=== PATIENT | male | born 1960 | race Caucasian/White ===

== ENCOUNTER 2022-12-28 10:01 | Outpatient (OUT) | payer OTHER, SELFPAY ==
--- NOTE | 2022-12-28 | XR_ITS ---
[place] [id number] Patient Name: TORO PORTER MRN: [id number] date: 1960 Sex: M Assigned Patient Location: [facility] Current Patient Location: [facility] Accession/Order Number: [id number] Exam Date: 12/28/2022 10:20 Report Date: 12/28/2022 16:56 At the request of: GOLDY SANCHEZ Procedure: XR ankle MICHELLE min 3V EXAMINATION: XR ankle MICHELLE min 3V HISTORY: BILATERAL ANKLE PAIN COMPARISON: 06/01/2022 FINDINGS: RIGHT FINDINGS: BONES: No acute fracture or dislocation. Moderate enthesopathic spurring of the calcaneus at the Achilles and plantar insertions. Remote fracture proximal dorsal navicular SOFT TISSUES: Negative. No visible soft tissue swelling. OTHER: Vascular calcifications LEFT FINDINGS: BONES: Total talus arthroplasty. Moderate enthesopathic spurring of the calcaneus at the Achilles and plantar insertions SOFT TISSUES: Moderate diffuse soft tissue swelling OTHER: Negative. XR/XR ankle MICHELLE min 3V IMPRESSION: RIGHT CONCLUSION: Enthesopathic spurring of the calcaneus LEFT CONCLUSION: Talus replacement with moderate diffuse swelling Electronically authenticated by: LAURA TORREZ Date: 12/28/2022 16:56
== END 2022-12-28 10:02 | disposition home or self-care (01) ==
PROVIDERS: Visit Provider Podiatrist Foot & Ankle Surgery
DX: M25.571 Pain in right ankle and joints of right foot (principal); M25.572 Pain in left ankle and joints of left foot; Z96.662 Presence of left artificial ankle joint
CPT/HCPCS: 73610

== ENCOUNTER 2023-07-12 10:04 | Outpatient (OUT) | payer OTHER, SELFPAY ==
--- NOTE | 2023-07-12 | XR_ITS ---
The [address] [address] Patient Name: TORO PORTER MRN: [id number] date: 1960 Sex: M Assigned Patient Location: Current Patient Location: Accession/Order Number: [id number] Exam Date: 07/12/2023 10:05 Report Date: 07/12/2023 13:27 At the request of: GOLDY SANCHEZ Procedure: XR ankle LT min 3V PROCEDURE: XR ankle LT min 3V COMPARISON: Bone/03/21 HISTORY: LEFT ANKLE PAIN FINDINGS: BONES:Talus replacement. No acute fracture, dislocation or mechanical failure. Bulky enthesopathic spurring of the calcaneus at the Achilles and plantar insertions. SOFT TISSUES:Moderate diffuse soft tissue swelling EFFUSION:None visible. OTHER: Negative. XR/XR ankle LT min 3V IMPRESSION: Stable talus replacement Moderate ankle soft tissue swelling Electronically authenticated by: LAURA TORREZ Date: 07/12/2023 13:27
== END 2023-07-12 10:05 | disposition home or self-care (01) ==
LOC: EC 10:04
PROVIDERS: Visit Provider Podiatrist Foot & Ankle Surgery
DX: M25.572 Pain in left ankle and joints of left foot (principal); Z96.662 Presence of left artificial ankle joint
CPT/HCPCS: 73610

== ENCOUNTER 2023-10-18 11:19 | Outpatient (OUT) | payer OTHER, SELFPAY ==
--- NOTE | 2023-10-18 | XR_ITS ---
The [address] [address] Patient Name: TORO PORTER MRN: [id number] date: 1960 Sex: M Assigned Patient Location: Current Patient Location: Accession/Order Number: [id number] Exam Date: 10/18/2023 11:20 Report Date: 10/20/2023 04:37 At the request of: GOLDY SANCHEZ Procedure: XR ankle LT min 3V PROCEDURE: XR ankle LT min 3V HISTORY: LEFT ANKLE PAIN COMPARISON: XR ankle left 07/12/2023 FINDINGS: BONES:Prior prosthetic replacement of the talus. No appreciable hardware fracture or change in alignment. No bone fracture dislocation. Degenerative enthesopathic spurring of the calcaneus. SOFT TISSUES:Mild soft tissue swelling surrounding the ankle. EFFUSION:None visible. OTHER: Negative. XR/XR ankle LT min 3V IMPRESSION: 1. Stable postsurgical changes without evidence of hardware failure or change in alignment. Electronically authenticated by: CARI HU Date: 10/20/2023 04:37
== END 2023-10-18 11:20 | disposition home or self-care (01) ==
PROVIDERS: Visit Provider Podiatrist Foot & Ankle Surgery
DX: M25.572 Pain in left ankle and joints of left foot (principal); Z96.662 Presence of left artificial ankle joint
CPT/HCPCS: 73610

== ENCOUNTER 2024-04-24 13:05 | Outpatient (OUT) | payer OTHER, SELFPAY ==
--- NOTE | 2024-04-24 | XR_ITS ---
The [address] [address] Patient Name: TORO PORTER MRN: [id number] date: 1960 Sex: M Assigned Patient Location: [facility] Current Patient Location: [facility] Accession/Order Number: [id number] Exam Date: 04/24/2024 13:29 Report Date: 04/24/2024 13:32 At the request of: GOLDY SANCHEZ DPKerrie Procedure: XR ankle LT min 3V LEFT ANKLE - 3 views CLINICAL DATA: Left ankle pain. Follow-up talar implant COMPARISON: 10/18/2023 Weightbearing AP, lateral and oblique views were obtained. A talar implant is again visualized, unchanged from the prior. There are no developing fractures or dislocation. There is narrowing of the tibiotalar joint space. Similar degenerative changes are seen at the tibial plafond as well as the malleoli. There is spurring at the dorsum of the navicular and bony ossicles in the vicinity of the os trigonum. Plantar calcaneal spurs are again seen. There is continued generalized soft tissue swelling. XR/XR ankle LT min 3V IMPRESSION: STABLE APPEARANCE OF THE ANKLE AND TALAR PROSTHESIS. Impression dictated by: Aydee Smith M.D.04/24/2024 1:32 PM Dictation Location: [place] [address] Electronically authenticated by: [id number] Y Date: 04/24/2024 13:32
== END 2024-04-24 13:06 | disposition home or self-care (01) ==
LOC: RAD 13:06
PROVIDERS: Visit Provider Podiatrist Foot & Ankle Surgery
DX: M25.572 Pain in left ankle and joints of left foot (principal); Z96.662 Presence of left artificial ankle joint
CPT/HCPCS: 73610